=== PATIENT | female | born 1995 | race African-American/Black ===

== ENCOUNTER 2018-01-22 01:23 | Emergency (ER) | payer MEDICAID, OTHER ==
[~2018-01-22] VITALS: Ht 162.6 cm; Wt 83.0 kg
[2018-01-22 02:39] VITALS: BP 134/83
== END 2018-01-22 07:12 | disposition left against medical advice (07) ==
LOC: ER 01:23
DX: L02.413 Cutaneous abscess of right upper limb (principal); Z53.21 Procedure and treatment not carried out due to patient leaving prior to being seen by health care provider